=== PATIENT | female | born 1980 | race Caucasian/White ===

== ENCOUNTER 2017-12-06 05:09 | Inpatient (IN) | payer OTHER ==
[2017-12-06] MEDS ORDERED: ceFOXitin 2 GM IVPREMIX* 2 GM/50 ML BAG IVPB ONE (05:44)
[2017-12-06] MEDS ORDERED: Sodium Citrate/Citric Acid* 15 ML UDC PO ONE (05:44)
[2017-12-06] MEDS ORDERED: Midazolam* 1 MG/ML 5 ML VIAL (5 MG) ONE (05:56)
[2017-12-06] MEDS ORDERED: Morphine PF AMP (0.5MG/ML)* 5 MG/10 ML AMP ONE (05:56)
[2017-12-06] MEDS ORDERED: KETAMINE HCL* 50 MG/ML 10 ML VIAL ONE (05:56)
[2017-12-06] MEDS ORDERED: fentaNYL* 50 MCG/ML 2 ML VIAL (100 MCG VIAL) ONE (05:56)
[2017-12-06 05:58] LABS: ABS Basophils 0 10^3/ul (0-0.2); ABS Eosinophils 0.4 10^3/ul (0-0.6); ABS Lymphocytes 1.7 10^3/ul (1.0-4.8); ABS Monocytes 1.1 10^3/ul (0-0.8); ABS Neutrophils 7.5 10^3/ul (1.5-7.7); ABS Nucleated RBC 0 10^3/ul; Eosinophil % 3.7 % (0-6); Hematocrit 38 % (35-47); Hemoglobin 12.7 g/dl (12.0-16.0); Lymphocyte % 15.4 % (25-47); Mean Corpuscular HGB Conc 34 g/dl (31-36); Mean Corpuscular Hemoglobin 33 pg (27-31); Mean Corpuscular Volume 98 fL (80-97); Mean Platelet Volume 10.6 um3 (7.4-10.4); Nucleated Red Blood Cells % 0; Platelet Count 134 10^3/ul (150-450); Red Blood Count 3.83 10^6/ul (4.0-5.4); Red Cell Distribution Width 14 % (10.5-15); White Blood Count 10.7 10^3/ul (3.5-10.8)
[2017-12-06] MEDS ORDERED: Naloxone* 2 MG in NS 0.9% 250 ML* 250 ML IV PRN (06:37)
[2017-12-06] MEDS ORDERED: Naloxone* 0.4 MG/ML 1 ML VIAL IV PRN ×2 (06:37→06:40)
[2017-12-06] MEDS ORDERED: diPHENhydraMINE IV* 50 MG/ML 1 ml VIAL (BENADRYL) IV PRN (06:37)
[2017-12-06] MEDS ORDERED: PROCHLORPERAZINE INJ 5 MG/ML 2 ML VIAL IV PRN (06:37)
[2017-12-06] MEDS ORDERED: oxyCODONE/Acetamin 5/325 MG* TAB PO PRN (06:37)
[2017-12-06] MEDS ORDERED: Nalbuphine* 20 MG/ML 1 ML VIAL IV PRN (06:37)
[2017-12-06] MEDS ORDERED: Ondansetron INJ* 2 MG/ML VIAL IV PRN (06:37)
[2017-12-06] MEDS ORDERED: DiMENhydriNATE IV* 50 MG/ML VIAL IV PUSH PRN (06:37)
[2017-12-06] MEDS ORDERED: fentaNYL* 50 MCG/ML 2 ML VIAL (100 MCG VIAL) IV PRN (06:40)
[2017-12-06] MEDS ORDERED: Ketorolac INJ* 30 MG/ML 1 ML VIAL ONE (06:48)
[2017-12-06] MEDS ORDERED: Ondansetron INJ* 2 MG/ML VIAL ONE (06:48)
[2017-12-06] MEDS ORDERED: Dexamethasone IV* 4 MG/ML 1 ML (4 MG) ONE (06:48)
[2017-12-06] MEDS ORDERED: EPHEDrine (Pressors)* 50 MG/ML VIAL ONE (06:48)
[2017-12-06] MEDS ORDERED: Scopolamine 1.5 mg* PATCH ONE (06:49)
[2017-12-06] MEDS ORDERED: Acetaminophen TAB* 325 MG PO PRN (07:09)
[2017-12-06] MEDS ORDERED: Zolpidem TAB* 5 MG PO PRN (07:09)
[2017-12-06] MEDS ORDERED: Dibucaine 1% 28.35 GM TUBE PR PRN (07:09)
[2017-12-06] MEDS ORDERED: Witch Hazel PAD* JAR TOPICAL PRN (07:09)
[2017-12-06] MEDS ORDERED: Glycerin ADULT SUPP PR PRN (07:09)
[2017-12-06] MEDS: Simethicone TAB* 80 MG TAB.CHEW PO SCH ×4 (08:30→20:31)
[2017-12-06] MEDS: Docusate CAP* 100 MG PO SCH ×3 (09:00→20:31)
[2017-12-06] MEDS: Ketorolac INJ* 30 MG/ML 1 ML VIAL IV PRN ×2 (13:14→20:31)
[2017-12-07] MEDS: Ketorolac INJ* 30 MG/ML 1 ML VIAL IV PRN (03:52)
[2017-12-07 07:11] LABS: ABS Basophils 0 10^3/ul (0-0.2); ABS Eosinophils 0.3 10^3/ul (0-0.6); ABS Lymphocytes 2.1 10^3/ul (1.0-4.8); ABS Monocytes 1.2 10^3/ul (0-0.8); ABS Neutrophils 9.2 10^3/ul (1.5-7.7); ABS Nucleated RBC 0 10^3/ul; Eosinophil % 2.1 % (0-6); Hematocrit 32 % (35-47); Hemoglobin 10.7 g/dl (12.0-16.0); Lymphocyte % 16.1 % (25-47); Mean Corpuscular HGB Conc 34 g/dl (31-36); Mean Corpuscular Hemoglobin 33 pg (27-31); Mean Corpuscular Volume 98 fL (80-97); Mean Platelet Volume 11.7 um3 (7.4-10.4); Nucleated Red Blood Cells % 0.1; Platelet Count 104 10^3/ul (150-450); Red Blood Count 3.23 10^6/ul (4.0-5.4); Red Cell Distribution Width 14 % (10.5-15); White Blood Count 12.7 10^3/ul (3.5-10.8)
[2017-12-07] MEDS: oxyCODONE/Acetamin 5/325 MG* TAB PO PRN ×5 (08:28→23:48)
[2017-12-07] MEDS: Docusate CAP* 100 MG PO SCH ×3 (08:28→22:27)
[2017-12-07] MEDS: Simethicone TAB* 80 MG TAB.CHEW PO SCH ×4 (08:29→22:28)
[2017-12-07] MEDS ORDERED: Ferrous Gluconate TAB* 324 MG TAB PO SCH (09:00)
[2017-12-07] MEDS: Ibuprofen TAB* 600 MG PO PRN ×3 (09:44→22:28)
[2017-12-08] MEDS: Ibuprofen TAB* 600 MG PO PRN ×3 (04:19→18:47)
[2017-12-08] MEDS: oxyCODONE/Acetamin 5/325 MG* TAB PO PRN ×4 (04:20→22:38)
[2017-12-08] MEDS: Simethicone TAB* 80 MG TAB.CHEW PO SCH ×4 (08:39→20:47)
[2017-12-08] MEDS: Docusate CAP* 100 MG PO SCH ×3 (08:39→20:47)
[2017-12-09] MEDS: Ibuprofen TAB* 600 MG PO PRN ×2 (00:48→09:05)
[2017-12-09] MEDS: oxyCODONE/Acetamin 5/325 MG* TAB PO PRN ×2 (05:28→11:37)
[2017-12-09] MEDS ORDERED: Scopolamine PATCH Remove* 1 NOTE MISC PATCH OFF PRN (06:38)
[2017-12-09 08:05] VITALS: BP 94/55
[2017-12-09] MEDS: Docusate CAP* 100 MG PO SCH (09:00)
[2017-12-09] MEDS: Simethicone TAB* 80 MG TAB.CHEW PO SCH (09:00)
--- NOTE | 2017-12-12 10:11 | OP ---
OPERATIVE REPORT: DATE OF OPERATION: 12/06/17 DATE OF : 80 SURGEON: Epifanio Garcia MD RUFFLER: Alejo Pa CNM ANESTHESIA: Spinal. PRE-OP DIAGNOSIS: Breech in labor. POST-OP DIAGNOSIS: Breech in labor. OPERATIVE PROCEDURE: Low transverse section. ESTIMATED BLOOD LOSS: 600 cc. COMPLICATIONS: None. FINDINGS: This is a 37-year-old, who presented in active labor, had broke her water approximately 05 00 and presented to Labor and Delivery approximately 0630 in active labor. At the time of exam, she was 4-cm dilated and uncomfortable. At the time of , she had a viable male, Apgars 9 and 10. The weight was 6 pounds and 8 ounces. Normal-appearing uterus, fallopian tubes, and ovaries. DESCRIPTION OF PROCEDURE: The patient was identified, procedure identified as low transverse cesarea n section. The patient was taken to the operating room, prepped and draped in the usual fashion, in the left lateral recumbent position under spinal anesthesia. A Pfannenstiel incision was made in the abdomen and carried down through the fat, fascia, and peritoneum. A transverse incision was made in the lower uterine segment, extended laterally using blunt dissection. The above was delivere d through the incision using normal breech extraction manner. Cord was doubly clamped and cut, and th e infant was handed to the awaiting steamblaster. Cord blood was obtained. Placenta delivered spont aneously. Uterine incision was then closed using 0 Polysorb in a running fashion. A second layer wa s used to imbricate the first layer. Good hemostasis was verified. The peritoneum was then closed u sing 3-0 Polysorb in a running fashion. Good hemostasis was achieved in the subrectus layer. The fa scia was closed using 0 Polysorb in a running fashion. Good hemostasis was achieved in the subcu and the skin was closed with 4-0 Monocryl in a subcuticular fashion. All sponge and instrument counts w ere correct. The patient returned to recovery room in stable condition. [id number] #: [id number]
== END 2017-12-09 13:15 | disposition home or self-care (01) | DRG 766 ==
LOC: MCHOBOUT 05:09 → MCHOB 05:33
PROVIDERS: ADMIT Obstetrics & Gynecology; ATTEND Obstetrics & Gynecology
PROC: 4A1HX4Z Monitoring of Products of Conception, Cardiac Electrical Activity, External Approach (ICD-10-PCS; 2017-12-06)
PROC: 10D00Z1 Extraction of Products of Conception, Low, Open Approach (ICD-10-PCS; principal; 2017-12-06 06:00)
DX: O32.1XX0 Maternal care for breech presentation, not applicable or unspecified (principal); O34.43 Maternal care for other abnormalities of cervix, third trimester; N84.1 Polyp of cervix uteri; Z37.0 Single live birth; Z3A.37 37 weeks gestation of pregnancy; Z87.891 Personal history of nicotine dependence
CPT/HCPCS: 36415; 85025; 86850; 86900; 86901; A9270-GY; J0694; J1100; J1240; J1885; J2250; J2405; J3010

== ENCOUNTER 2018-04-16 09:54 | Emergency (ER) | payer OTHER ==
[2018-04-16 10:14] VITALS: BP 97/69
--- NOTE | 2018-04-16 10:48 | UC ---
UC General HPI - HPI Summary HPI Summary: This patient is a 38 year old F presenting to [facility] with a chief complaint of general malaise for the last week. Patient reports myalgia, fatigue, dizziness , epigastric burning, alternating diarrhea and constipation, . Patient denies melena and blood in the stool. Pt denies fever, chills, rash. no cp, sob. . Pt had her second child in november of this year, through c section, without complications. She expresses stress caused by caring for her children and attempting to get them get along. She is not breast feeding. When it is brought up that the patient is overwhelmed she began to cry and expresses that she feels overwhelmed. . She adamently denies having bad thoughts but she feels stressed because she needs help caring for children while other people are able to do it without the help she receives. She endorses how fatigued she is and how she is unable to get the adequate amount of sleep. After she wakes up in the middle of the night she is unable to fall back asleep quickly because she is thinking persistently. She gets upset with herself that she is unable to fall asleep quickly. Pt admits she compares herself to other moms with more children and wonders why they are note overwhelmed. Pt states she is able to care for her children. Pt states he mother has been present for 6 months,but is leaving on tomorrow. her mother in law is coming for 1 month this week. Pt states she does not have a PCP. pt does discuss these feelings with her . Pt states she has a h.o thyoid dx, but is note currently taking medications. Pt denies thoughts of injuring her children. Pt denies feel anger or resentment toward them. states she feels frustration with herself. States they do go to playground and she does talk with other parents who "complain" of the same thing. Pt does little independet activities. Patient denies SI and HI. Patients medications reviewed this visit. - History of Current Complaint Chief Complaint: UCGeneralIllness Stated Complaint: BODYACHES ABD PAIN Time Seen by Provider: 04/16/18 10:44 Hx Obtained From: Patient Hx Last Menstrual Period: 03/23/18 Onset/Duration: Lasting Weeks, Still Present Timing: Constant Onset Severity: Moderate Current Severity: Moderate Pain Intensity: 5 Associated Signs & Symptoms: Positive: Other - myalgia, dizziness, ABD pain, poor sleep, fatigue, diarrhea, and epigastric pain - Allergy/Home Medications Allergies/Adverse Reactions: Allergies Allergy/AdvReac Type Severity Reaction Status Date / Time No Known Allergies Allergy Verified 04/16/18 10:04 Home Medications: Home Medications D-Methorphan/PE/Acetaminophen [Gnp Day Time Cold/Flu Rel] 1 liq PO ONCE [History Confirmed 04/16/18] PMH/Surg Hx/FS Hx/Imm Hx - Additional Past Medical History Additional PMH: Thrombocytopenia Previously Healthy: Yes Endocrine History: Hyperthyroidism - Surgical History Surgical History: Yes Surgery Procedure, Year, and Place: 2018. appendectomy when child - Family History Known Family History: Negative: Seizure Disorder - Social History Occupation: Unemployed - mother Lives: With Family Alcohol Use: Occasionally Substance Use Type: None Smoking Status (MU): Current Some Day Smoker Amount Used/How Often: 2 cig/ week Have You Smoked in the Last Year: Yes - Immunization History Most Recent Influenza Vaccination: 08/30/17 Most Recent Pneumonia Vaccination: none Review of Systems Constitutional: Fatigue, Other - poor sleep Gastrointestinal: Abdominal Pain, Diarrhea, Other - constipation Musculoskeletal: Myalgia Psychological: Anxious, Other - overwhelmed All Other Systems Reviewed And Are Negative: Yes Physical Exam - Summary Physical Exam Summary: Vital Signs Reviewed: Yes A+Ox3, very pleasant, intermittently tearful, appropriate Eyes: Conjunctiva Clear, ALBERTO. EOM intact and full ENT: Hearing grossly normal TM x 2 clear, mmoist, uvula midline, no exudate, no erythema Neck: Positive: Supple, no thyromegaly Respiratory: Positive: No respiratory distress, No accessory muscle use + CTA throughout no w/r Cardiovascular: RRR nl s1, s2 no m/r CBT <2 sec abd soft + BS nt/nd no guarding, no distension Musculoskeletal Exam: GABRIEL x 4 without difficulty Strength Intact, ROM Intact Neurological: Positive: Alert, + sensation throughout Psychological: Positive: Normal Response To Family Skin: Positive: no rash, no ecchymosis Triage Information Reviewed: Yes Vital Signs: Initial Vital Signs Temp 97.8 F 04/16/18 10:06 Pulse 81 04/16/18 10:06 Resp 18 04/16/18 10:06 BP 97/69 04/16/18 10:06 Pulse Ox 100 04/16/18 10:06 Re-Evaluation - Re-Evaluation First Eval Comment: Elham Munroe arranged for PCP appt. Jose, 04/18. 1:30pm. KIEL Zhou. PCP Dr. Ariza. Pt very happy - state sfeels relief with plan. strict return precautions. 911 or ED - with any thoughts of harm to self or others. pt in full agreement Course/Dx - Course Course Of Treatment: Pt presents with variable complaints - after long conversation, pt admits feeling overwhelmed and somewhat inadequate in the care of her 2 young children. Pt reports she is providing good care and is able to be postivie around the children - but states her older child has regressed since . Pt does have support of her and her mom who has been living with her for 6 months. Her mom leaves tomorrow which is stressful. Her mother in law is coming this week for 1 month. Pt does not have a PCP. Reports she is not sleeping well. Pt cried during conversation and reported feeling better "after getting it out" Pt does have a h.o thyroid dx - is not currently on medications. Pt does not have a PCP and know it will take "months" to get one. Pt adamantly denies SI/HI. Pt makes loving statments about her children. Pt with stable vital signs and non concerning physical exam. will check screening labs including thyroid. will work with Elham Munroe to get pt a pcp appt - Differential Dx - Multi-Symptom Provider Diagnoses: fatigue Discharge - Sign-Out/Discharge Documenting (check all that apply): Patient Departure All imaging exams completed and their final reports reviewed: No Studies - Discharge Plan Condition: Stable Disposition: HOME Patient Education Materials: Gastroesophageal Reflux Disease (ED), Musculoskeletal Pain (ED), Fatigue (ED) Referrals: Socorro Ariza MD [Medical Doctor] - Laura Boswell NP [Nurse Practitioner] - (Jose 04/18/18 at 1:30pm at [address] [place] [address] ) Additional Instructions: Stay well hydrated. Drink plenty of nonalcoholic non-caffeinated beverages. Eat regular, small frequent meals. Avoid spicy food, acidic food, tomato based foods, carbonated beverage, and uses mainly stomach acid worse. It is recommended you take Pepcid to try to decrease stomach acid You have a primary care appointment scheduled for this , 04/18, at 1:30 PM at [address] [place] [address] You will be seen by Laura Boswell a nurse practitioner. Your new PCP is Dr. Ariza who will see you in your follow-up appointments. It is very important to keep this appointment. Your blood work will be reviewed at this visit. If there is anything concerning on her blood work comes back before this visit you will receive a cough from a care crew team member. If you have any questions or concerns please contact the physician referral center. Doctor to feel overwhelmed and have thoughts of injuring herself or anybody else it is recommended to call 911 and go to emergency department for further evaluation. Work to find 15-30 minutes every day for individual quiet time. - Billing Disposition and Condition Condition: STABLE Disposition: Home - Attestation Statements Document Initiated by Rohan: Yes Documenting Scribe: Tj Yang Provider For Whom Robyne is Documenting (Include Credential): Kristin Day MD Scribe Attestation: ITj , scribed for Kristin Day MD on 04/17/18 at 1217. Scribe Documentation Reviewed: Yes Provider Attestation: The documentation as recorded by the Tj desai accurately reflects the service I personally performed and the decisions made by me, Kristin Day MD
[2018-04-16 16:16] LABS: ABS Basophils 0 10^3/ul (0-0.2); ABS Eosinophils 0.2 10^3/ul (0-0.6); ABS Lymphocytes 1.6 10^3/ul (1.0-4.8); ABS Monocytes 0.9 10^3/ul (0-0.8); ABS Neutrophils 2.5 10^3/ul (1.5-7.7); ABS Nucleated RBC 0 10^3/ul; Eosinophil % 3.8 % (0-6); Hematocrit 41 % (35-47); Hemoglobin 14.1 g/dl (12.0-16.0); Lymphocyte % 30.9 % (25-47); Mean Corpuscular HGB Conc 34 g/dl (31-36); Mean Corpuscular Hemoglobin 33 pg (27-31); Mean Corpuscular Volume 95 fL (80-97); Mean Platelet Volume 10.6 um3 (7.4-10.4); Nucleated Red Blood Cells % 0.1; Platelet Count 156 10^3/ul (150-450); Red Blood Count 4.32 10^6/ul (4.00-5.40); Red Cell Distribution Width 13 % (10.5-15); White Blood Count 5.3 10^3/ul (3.5-10.8)
== END 2018-04-16 12:06 | disposition home or self-care (01) ==
LOC: UCEAST 09:54
DX: R53.83 Other fatigue (principal); E05.90 Thyrotoxicosis, unspecified without thyrotoxic crisis or storm; F17.200 Nicotine dependence, unspecified, uncomplicated
CPT/HCPCS: 36415; 80053; 83690; 83735; 84443; 85025; 99211; G0463

== ENCOUNTER 2018-10-03 16:24 | Emergency (ER) | payer OTHER ==
[2018-10-03 16:46] VITALS: BP 108/75
--- NOTE | 2018-10-03 17:23 | UC ---
Throat Pain/Nasal Carlos HPI - HPI Summary HPI Summary: 4 days of sinus congestion and new sore throat w/ R lymph node swelling. denies cough and fever. - History of Current Complaint Chief Complaint: UCRespiratory Stated Complaint: FEVER, AND SINUS CONGESTION Time Seen by Provider: 10/03/18 16:45 Hx Obtained From: Patient Hx Last Menstrual Period: 2 wks ago Pain Intensity: 4 Pain Scale Used: 0-10 Numeric Cough: None Associated Signs & Symptoms: Negative: Drooling, Fever - Allergies/Home Medications Allergies/Adverse Reactions: Allergies Allergy/AdvReac Type Severity Reaction Status Date / Time No Known Allergies Allergy Verified 10/03/18 16:46 Home Medications: Home Medications Multivitamin [Multiple Vitamins] 1 tab PO DAILY 10/03/18 [History Confirmed 02/14] PMH/Surg Hx/FS Hx/Imm Hx Previously Healthy: Yes - Surgical History Surgical History: Yes Surgery Procedure, Year, and Place: 2018. appendectomy when child - Family History Known Family History: Negative: Seizure Disorder - Social History Alcohol Use: Rare Substance Use Type: None Smoking Status (MU): Former Smoker Amount Used/How Often: 2 cig/ week Have You Smoked in the Last Year: Yes - Immunization History Most Recent Influenza Vaccination: 08/30/17 Most Recent Pneumonia Vaccination: none Review of Systems All Other Systems Reviewed And Are Negative: Yes Constitutional: Positive: Negative Skin: Negative: Rash ENT: Positive: Sore Throat, Sinus Congestion Respiratory: Positive: Negative Cardiovascular: Positive: Negative Neurological: Negative: Headache Physical Exam Triage Information Reviewed: Yes Appearance: Well-Appearing Vital Signs: Initial Vital Signs Temp 98.2 F 10/03/18 16:43 Pulse 66 10/03/18 16:43 Resp 12 10/03/18 16:43 BP 108/75 10/03/18 16:43 Pulse Ox 100 10/03/18 16:43 Vital Signs Reviewed: Yes Eyes: Positive: Conjunctiva Clear ENT: Positive: Pharyngeal erythema, TMs normal, Tonsillar swelling, Sinus tenderness, Uvula midline. Negative: Tonsillar exudate Neck: Positive: Enlarged Nodes @ - R ant. chain. Negative: Nuchal Rigidity, Tenderness @ Respiratory Exam: Normal Cardiovascular Exam: Normal Neurological: Positive: Alert Skin: Negative: Rashes Throat Pain/Nasal Course/Dx - Course Assessment/Plan: sore throat and sinusitis w/ R ant. cervical lymphadenopathy. + rapid strep. vitals good. will tx w/ antibx. - Differential Dx/Diagnosis Differential Diagnosis/HQI/PQRI: Laryngitis, Pharyngitis, URI Provider Diagnosis: Strep pharyngitis Discharge - Sign-Out/Discharge Documenting (check all that apply): Patient Departure All imaging exams completed and their final reports reviewed: No Studies - Discharge Plan Condition: Good Disposition: HOME Prescriptions: Penicillin VK TAB* [Penicillin VK 250 mg Tab*] 500 mg PO BID 10 Days #20 tab Patient Education Materials: Sinusitis (ED) Referrals: Socorro Ariza MD [Primary Care Provider] - Additional Instructions: You likely have a viral infection but we discussed antibiotic use and you have decided to have it sent to pharmacy. You do not have Strep. - Billing Disposition and Condition Condition: GOOD Disposition: Home
== END 2018-10-03 18:00 | disposition home or self-care (01) ==
LOC: UCEAST 16:24
DX: J02.0 Streptococcal pharyngitis (principal); Z87.891 Personal history of nicotine dependence
CPT/HCPCS: 87651